=== PATIENT | male | born 1985 | race Caucasian/White ===

== ENCOUNTER 2016-08-08 23:36 | Emergency (ER) | payer SELFPAY ==
--- NOTE | 2016-08-09 04:34 | ER ---
ADMIT: 08/08/2016 RM/LOC: ER [facility] MR#: [id number] [address] [id number] JOSSIE VILLASENOR [address] [place] [id number] Emergency Room Report SEX: M AGE: 31 : 1985 DATE: 08/08/2016 The patient is a 31-year-old male complaining of spontaneous left lateral ankle pain today. Used ice and hydrocodone with no improvement. No prior history of gout. Exam remarkable for nontoxic, afebrile, morbidly obese male with tender left ankle with minimal synovitis. No evidence of cellulitis. Achilles intact. WBC 10.1, CRP 0.7, uric acid elevated 9.1, D-dimer 0.46. The patient was given Toradol 30 mg IM with greater than 50% improvement. Home with indomethacin 25 mg t.i.d. p.r.n. #30 plus 6 from [facility]. Elevate, rest, and heat. Follow up Dr. Brennan 2 to 3 weeks for allopurinol. Jomar Phan MD/ brannon JOB #: [id number] CC: Jomar Phan MD, Attending Physician Luis Brennan MD, Family Physician Luis Brennan MD
== END 2016-08-09 01:08 | disposition home or self-care (01) ==
LOC: ER 23:36
DX: M10.9 Gout, unspecified (principal); Z79.899 Other long term (current) drug therapy